=== PATIENT | male | born 1990 | race African-American/Black ===

== ENCOUNTER 2023-03-17 18:50 | Emergency (ER) | payer MEDICAID ==
[~2023-03-17] VITALS: Ht 175.3 cm; Wt 79.3 kg
[2023-03-17] MEDS ORDERED: KETOROLAC TROMETH 60MG/2ML VIAL IM ONE (19:00)
[2023-03-17] MEDS ORDERED: ONDANSETRON ODT 4 MG TAB PO ONE (19:00)
[2023-03-17 19:48] LABS: Basophils # (auto) 0 10 ^3/uL (0-0.2); Basophils % (auto) 0.5 % (0.0-2.0); Eosinophils # (auto) 0.3 10 ^3/uL (0-0.8); Eosinophils % (auto) 3.1 % (0.0-7.0); Hematocrit 46.4 % (41.0-53.0); Hemoglobin 15.9 g/dL (13.5-17.5); Lymphocytes # (auto) 3.8 10 ^3/uL (0.4-5.4); Lymphocytes % (auto) 45.2 % (10.0-50.0); Mean Corpuscular Hemoglobin 31.3 pg (28.0-32.0); Mean Corpuscular Hgb Conc. 34.3 g/dL (32.0-36.0); Mean Corpuscular Volume 91.3 fL (80.0-100.0); Monocytes # (auto) 0.9 10 ^3/uL (0-1.3); Monocytes % (auto) 10.3 % (0.0-12.0); Neutrophils # (auto) 3.5 10 ^3/uL (1.6-8.6); Neutrophils % (auto) 40.9 % (37.0-80.0); Nucleated Red Blood Cells % 0.1 %; Red Blood Cells 5.09 10^6/uL (4.5-5.90); Red Cell Distribution Width 12.6 % (11.8-14.3); White Blood Cell 8.5 10^3/uL (4.4-10.8)
[2023-03-17 19:59] LABS: Chloride 109 mmol/L (98-107); Potassium 4.5 mmol/L (3.5-5.1); Sodium 143 mmol/L (136-145)
[2023-03-17 20:00] LABS: Anion Gap 5 (5-15); Carbon Dioxide 29 mmol/L (20-30)
[2023-03-17 20:01] LABS: Calcium 9.4 mg/dL (8.7-10.4)
[2023-03-17 20:05] LABS: Glucose 98 mg/dL (74-106)
[2023-03-17 20:06] LABS: BUN/Creatinine Ratio 6.4 (10.0-20.0); Blood Urea Nitrogen 6 mg/dL (9-23); Lipase 52 U/L (12-53)
[2023-03-17 20:17] LABS: Amphetamine Screen, Urine Neg (NEGATIVE)
[2023-03-17 20:18] LABS: Barbiturate Scree,Urine Neg (NEGATIVE); Benzodiazephine Screen, Urine Neg (NEGATIVE); Cannabinoid Screen, Urine Neg (NEGATIVE); Cocaine Screen, Urine Pos (NEGATIVE); Opiate Scree,Urine Neg (NEGATIVE); Phencyclidine Screen, Urine Neg (NEGATIVE)
[2023-03-17 20:20] LABS: Urine Bacteria NONE SEEN /hpf (None Seen); Urine Blood Negative /uL (Negative); Urine Clarity Clear (Clear); Urine Color Yellow (Yellow); Urine Mucus FEW (None Seen); Urine Protein, UAD 1+ (Negative); Urine Specific Gravity 1.028 (1.001-1.035); Urine Urobilinogen Normal (Negative); Urine WBC 1 /hpf (0 - 3)
[2023-03-17] MEDS ORDERED: IBUP-1455 PO (23:32)
[2023-03-17] MEDS ORDERED: ZOFR4T PO (23:32)
[2023-03-17 23:58] VITALS: BP 119/68; PULSE 107; RESP 18; TEMP 97.8; O2SAT 96
== END 2023-03-18 00:03 | disposition home or self-care (01) ==
LOC: ER 18:50
DX: K76.0 Fatty (change of) liver, not elsewhere classified (principal); R10.9 Unspecified abdominal pain
CPT/HCPCS: 36415; 74176; 80048; 80307; 81001; 83690; 85025; 96372; 99285; J1885; Q0162